=== PATIENT | female | born 1945 | race Caucasian/White ===

== ENCOUNTER 2021-04-20 08:09 | Outpatient (CLI) | payer OTHER | END 2021-04-20 08:23 | disposition home or self-care (01) | LOC: RX STUDY 08:09 | PROVIDERS: ATTEND Otolaryngology | DX: R13.19 Other dysphagia (principal) ==

== ENCOUNTER 2024-11-10 08:38 | Outpatient (CLI) | payer OTHER | END 2024-11-10 09:26 | disposition home or self-care (01) | LOC: RAD 08:38 → SONOGRAMA 08:38 → RAD 09:26 | PROVIDERS: ATTEND Otolaryngology | DX: E04.1 Nontoxic single thyroid nodule (principal); R10.13 Epigastric pain ==

== ENCOUNTER 2024-11-18 08:13 | Outpatient (CLI) | payer OTHER | END 2024-11-18 08:23 | disposition home or self-care (01) | LOC: RAD 08:13 | DX: Z13.820 Encounter for screening for osteoporosis (principal) ==

== ENCOUNTER 2024-11-25 09:08 | Outpatient (CLI) | payer OTHER | END 2024-11-25 09:09 | disposition home or self-care (01) | LOC: NUCLEAR 09:08 | DX: Z13.820 Encounter for screening for osteoporosis (principal); M81.0 Age-related osteoporosis without current pathological fracture ==

== ENCOUNTER 2025-01-12 08:09 | Outpatient (CLI) | payer OTHER ==
[2025-01-12 08:50] LABS: BASO % 0.6 % (0.1-1.2); EOS # 0.04 (0.04-0.54); EOS % 0.8 % (0.7-7.0); LYMPH # 1.11 (1.18-3.74); LYMPH % 21.2 % (19.3-53.1); MEAN PLATELET VOLUME 9.30 fl (9.4-12.4); MONO # 0.58 (0.24-0.82); MONO % 11.1 % (4.7-12.5); NEUT # 3.45 (1.56-6.13); NEUT % 65.7 % (34.0-71.1); RED CELL DISTRIBUTION WIDTH 14.5 % (11.6-14.4)
[2025-01-12 09:12] LABS: URINE APPEARANCE Clear; URINE BILIRRUBIN Negative (NEGATIVE); URINE BLOOD Trace; URINE COLOR Yellow; URINE GLUCOSE Negative (NEGATIVE); URINE KETONE Negative (NEGATIVE); URINE LEUKOCYTE Large; URINE NITRATE Negative; URINE PROTEIN Negative (NEGATIVE); URINE UROBILINOGEN 0.2 E.U./dl
[2025-01-12 09:16] LABS: URINE BACTERIA 669.4 uL (0.0-1933); URINE EPITHELIAL CELLS 24.7 uL (0.0-38.8); URINE RBC 2.7 uL (0.0-20.8); URINE WBC 184.2 uL (0.0-23.2)
[2025-01-12 09:33] LABS: URINE CAST 0.00 uL (0.0-1.40)
[2025-01-12 10:10] LABS: ALT/SGPT 26.0 U/L (12-78); AST/SGOT 25.0 U/L (15-37); BILIRUBIN TOTAL 0.79 mg/dL (0.3-1.2); BUN CREA RATIO 14.0 (7.0-25.0); CREATININE SERUM 1.1 mg/dL (0.55-1.02); GFR 47.79; GLOBULINA 2.6 G/DL (2.4-3.5); GLUCOSE FASTING 117.0 mg/dL (65-100); OSMOLALITY SERUM 287.0 MOSM/KG (275-295); T4 FREE 1.44 NG/ML (0.76-1.46); TSH 1.28 uIU/mL (0.358-3.74)
== END 2025-01-12 08:17 | disposition home or self-care (01) ==
LOC: LAB 08:09
PROVIDERS: ATTEND Internal Medicine Endocrinology, Diabetes & Metabolism
DX: B44.81 Allergic bronchopulmonary aspergillosis (principal); B78.9 Strongyloidiasis, unspecified; J45.51 Severe persistent asthma with (acute) exacerbation; E11.65 Type 2 diabetes mellitus with hyperglycemia; E03.9 Hypothyroidism, unspecified; N39.0 Urinary tract infection, site not specified; M81.0 Age-related osteoporosis without current pathological fracture

== ENCOUNTER 2025-01-21 07:45 | Outpatient (CLI) | payer OTHER | END 2025-01-21 07:56 | disposition home or self-care (01) | LOC: TOM 07:45 | PROVIDERS: ATTEND Internal Medicine Critical Care Medicine | DX: J84.10 Pulmonary fibrosis, unspecified (principal) ==

== ENCOUNTER → 2025-02-01 07:56 | Outpatient (CLI) | payer OTHER ==
[2025-02-01 08:55] LABS: BASO % 1.1 % (0.1-1.2); EOS # 0.03 (0.04-0.54); EOS % 0.6 % (0.7-7.0); LYMPH # 1.22 (1.18-3.74); LYMPH % 23.3 % (19.3-53.1); MEAN PLATELET VOLUME 9.90 fl (9.4-12.4); MONO # 0.76 (0.24-0.82); NEUT # 3.14 (1.56-6.13); NEUT % 60.1 % (34.0-71.1); RED CELL DISTRIBUTION WIDTH 14.7 % (11.6-14.4)
[2025-02-01 08:58] LABS: MONO % 14.5 % (4.7-12.5)
[2025-02-01 10:16] LABS: ALT/SGPT 20.0 U/L (12-78); AST/SGOT 20.0 U/L (15-37); BILIRUBIN TOTAL 0.72 mg/dL (0.3-1.2); BUN CREA RATIO 19.0 (7.0-25.0); CHOL HDL RATIO 1.9 (0-5.0); CREATININE SERUM 1.0 mg/dL (0.55-1.02); GFR 53.35; GLOBULINA 2.9 G/DL (2.4-3.5); GLUCOSE FASTING 103.0 mg/dL (65-100); HDL 75.0 mg/dl (40-60); LDL 47.0 mg/dl (0-130); OSMOLALITY SERUM 293.0 MOSM/KG (275-295); PHOSPHOKINASE CREATININE 146.0 U/L (26-192); TSH 2.91 uIU/mL (0.358-3.74); VLDL 16.0 (0-39)
== END | disposition home or self-care (01) ==
LOC: LAB 07:56
DX: E78.2 Mixed hyperlipidemia (principal); I11.9 Hypertensive heart disease without heart failure; I10 Essential (primary) hypertension; D63.8 Anemia in other chronic diseases classified elsewhere; E03.9 Hypothyroidism, unspecified